=== PATIENT | male | born 1990 | race Caucasian/White ===

== ENCOUNTER 2024-07-27 12:16 | Emergency (ER) | payer SELFPAY ==
[2024-07-27] MEDS ORDERED: Ketorolac Tromethamine 30 MG (1 mL) VIAL ONE (12:52)
[2024-07-27] MEDS ORDERED: Morphine 4 MG/ML VIAL ONE (12:52)
== END 2024-07-27 14:49 | disposition home or self-care (01) ==
LOC: CSHERS 12:16
DX: S02.652A Fracture of angle of left mandible, initial encounter for closed fracture (principal); F17.210 Nicotine dependence, cigarettes, uncomplicated; I25.2 Old myocardial infarction; Y04.8XXA Assault by other bodily force, initial encounter; Z55.6 Problems related to health literacy; Z75.3 Unavailability and inaccessibility of health-care facilities
CPT/HCPCS: 70486; 96374; 96375; J1885; J2272